=== PATIENT | female | born 1950 | race Caucasian/White ===

== ENCOUNTER → 2023-09-09 | Outpatient (CLI) | payer MEDICARE ==
[2023-09-09 14:37] VITALS: BP 147/71; PULSE 77; RESP 17; TEMP 98.6
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
== END ==
LOC: WWCWWP 13:40
PROVIDERS: ATTEND Surgery
DX: S09.90XA Unspecified injury of head, initial encounter (principal); C50.911 Malignant neoplasm of unspecified site of right female breast; Z80.3 Family history of malignant neoplasm of breast; Z86.73 Personal history of transient ischemic attack (TIA), and cerebral infarction without residual deficits; Z87.891 Personal history of nicotine dependence; Z17.0 Estrogen receptor positive status [ER+]; V29.99XA Rider (driver) (passenger) of other motorcycle injured in unspecified traffic accident, initial encounter

== ENCOUNTER → 2023-11-03 | Outpatient (CLI) | payer MEDICARE ==
[2023-11-03 15:02] VITALS: BP 127/81; PULSE 78; RESP 15; TEMP 97.9
== END ==
LOC: WWCWWP 12:37
PROVIDERS: ATTEND Surgery
DX: Z53.9 Procedure and treatment not carried out, unspecified reason (principal)

== ENCOUNTER 2023-11-15 07:21 | Day surgery (SDC) | payer MEDICARE ==
[2023-11-10 12:16] VITALS: BMI 26.5
[~2023-11-15 07:21] MED LIST: HYDROmorphone 0.5 MG/0.5 ML SYRINGE IVP PRN; MIDAZOLAM 2 MG/2 ML VIAL IV PRN
[2023-11-15] MEDS: LACTATED RINGERS 1,000 ML IV SCH (08:14)
[2023-11-15] MEDS: LIDOCAINE 1% (10MG/ML) FOR IV START INTRADERMA PRN (08:14)
[2023-11-15] MEDS: ACETAMINOPHEN TAB 500 MG TAB PO PRN (08:18)
[2023-11-15] MEDS: ALPRAZolam 0.25 MG TAB PO ONE (08:18)
[2023-11-15] MEDS ORDERED: ALPRAZolam 0.25 MG TAB ONE (08:18)
[2023-11-15] MEDS: LIDOCAINE 1% INJ 10MG/ML (20 ML MDV) SQ ONE ×3 (09:06→11:39)
[2023-11-15 09:27] VITALS: RESP 16
[2023-11-15] MEDS: DEXAMETHASONE SOD PHOSPHATE 4 MG/ML 1 ML VIAL IV ONE (09:44)
[2023-11-15] MEDS: ONDANSETRON 4 MG/2 ML VIAL IVP ONE (09:45)
[2023-11-15] MEDS: HEPARIN SODIUM,PORCINE 5,000 UNIT/ML 1 ML VIAL SQ PRN (09:45)
[2023-11-15] MEDS ORDERED: SUCCINYLCHOLINE CHLORIDE 200 MG/10 ML VIAL IV ONE (09:54)
[2023-11-15] MEDS ORDERED: fentaNYL (PF) 50 MCG/ML 2 ML AMP ONE (09:54)
[2023-11-15] MEDS ORDERED: ePHEDrine 50 MG/ML 1 ML VIAL ONE (09:54)
[2023-11-15] MEDS ORDERED: KETOROLAC 15 MG/ML 1 ML VIAL ONE (09:54)
[2023-11-15] MEDS ORDERED: LIDOCAINE 1% INJ 10MG/ML (20 ML MDV) ONE (09:54)
[2023-11-15] MEDS ORDERED: PROPOFOL 10 MG/ML 20 ML VIAL IV ONE (09:54)
[2023-11-15] MEDS: LACTATED RINGERS 1,000 ML IV ONE (11:30)
--- NOTE | 2023-11-15 11:37 | P.BCAON ---
Date of Procedure: 11/15/23 Preoperative Diagnosis: Right breast invasive ductal carcinoma Postoperative Diagnosis: Same Procedure(s) Performed: Right breast needle localization lumpectomy, oncoplastic tissue transfer 38 cm, sentinel node mapping, sentinel node biopsy Anesthesia: LUCIO Surgeon: Antonia Wagner Estimated Blood Loss (ml): 5 IV fluids (ml): 1,000 Pathology: other (Breast tissue, sentinel node) Condition: stable Disposition: same day Indications for Procedure: Right breast biopsy-proven invasive ductal carcinoma Operative Findings: Dense breast tissue Description of Procedure: The patient was first seen in the radiology department. Needle localization of the area of concern in the right breast was performed. Radiotracer was placed in the periareolar area. The patient was brought to the operative suite. Following induction of anesthesia the neoprobe was used to interrogate the axilla. Minimal radioactivity was identified. Therefore 5 cc of half percent methylene blue were injected in the periareolar area. The breast was massaged for 5 minutes. The right breast and axilla were prepped and draped in a sterile fashion. An axillary incision was performed. Upon performing the incision the neoprobe was again inserted into the area and some radioactivity was identified. 2 blue radioactive lymph nodes were identified. These were resected. No additional palpable radioactive or blue nodes were identified. After we are sure that hemostasis was attained the deep tissues were closed using 3-0 Vicryl suture. The skin was closed using 4-0 Monocryl. The area of the breast was approached. Secondary to the proximity to the skin,skin was removed anteriorly. A wedge of skin and tissue was removed surrounding the needle down to the pectoralis muscle. The tissue was removed around the lesion. The specimen was removed and painted for orientation. After we are sure that hemostasis was attained titanium clips were placed. A superior pillar 6 x 2 cm was created. An inferior pillar 5 x 2 cm was created. The cavity was 5 x 2 cm. Titanium clips were placed within the cavity. The cavity was well irrigated and we were sure that hemostasis was attained. The superior and inferior pillars were brought together using 3-0 Vicryl suture. Total oncoplastic tissue transfer was 38 cm. After assuring that hemostasis was attained the subcutaneous tissue was closed using 3-0 Vicryl suture. The skin was closed using 4-0 Monocryl. 1% lidocaine 10 cc was divided between the axillary and breast incision. Surgical glue was placed. The patient tolerated the procedure in stable condition. All instrument and sponge counts were correct at the end of the case. - Sentinal Node Biopsy Operation performed with curative intent: Yes Tracer(s) used in upfront surgery (non-neoadjuvant): dye, radioactive tracer Tracer(s) used in the neoadjuvant setting: N/A All nodes present at end of dye-filled channel removed: Yes All significantly radioactive nodes were removed: Yes All palpably suspicious nodes were removed: Yes Clipped positive nodes identified and removed: N/A
--- NOTE | 2023-11-15 11:39 | P.NAPBC ---
[facility] Queries - [facility] Queries Was patient's case review presented at [facility] tumor board? If no, comment.: Yes Was patient's pathology reviewed at [facility]? If no, comment.: Yes Was breast conservation surgery offered? If no, comment.: Yes Was sentinel node biopsy offered? If no, comment.: Yes Was diagnosis confirmed by percutaneous core biopsy? If no, comment.: Yes Is patient mastectomy patient?: No Was a preop referral to reconstructive surgeon offered?: No [facility] Comments: Stage I invasive ductal carcinoma right breast Clinical Stage: Stage I invasive ductal carcinoma right breast Prep Education Provided - Functional Assessment Performed?: Yes Referal Provided?: No
[2023-11-15 12:29] VITALS: TEMP 98.2
[2023-11-15 13:55] VITALS: BP 132/86; PULSE 66
--- NOTE | 2023-11-15 14:17 | NM ---
EXAMINATION TYPE: NM sentinel node injection DATE OF EXAM: 11/15/2023 COMPARISON: NONE CLINICAL INDICATION: Female, 73 years old with history of D05.11 INTRADUCTAL CARCINOMA IN SITU OF RIG HT BREAST; TECHNIQUE AND FINDINGS: The procedure of sentinel lymph node injection was explained to the patient. The benefits, alternatives, and risks were discussed. An informed consent was then obtained. Overlying skin is cleaned with sterile alcohol. Following this, 505 uCi Tc99m Tilmanocept was inject ed in the upper outer aspect of the right nipple intradermally. The patient tolerated the procedure well without any immediate complication. The patient was kept in the radiology department for short stay after the procedure and then taken to surgery for surgical p rocedure what is presumed intraoperative gamma probe will be used for sentinel lymph node detection. IMPRESSION: Right breast radiotracer injection for sentinel node localization as above.
--- NOTE | 2023-11-15 14:20 | MM ---
Risk Values: Kylah 5 year model risk: 3.0%. NCI Lifetime model risk: 7.3%. Electronically signed and approved by: Malia Childers M.D. Radiologist
== END 2023-11-15 13:58 | disposition home or self-care (01) ==
LOC: EEVIPCON 07:21 → OR 07:21
PROVIDERS: ATTEND Surgery
DX: D05.11 Intraductal carcinoma in situ of right breast (principal)
CPT/HCPCS: 77065; 76098; 19285; 38792; C1819; A9520; J0330; J1644; J1100; J0690; J2405; J2001; J3010; J1885; J2704; 88307; 88341; 88342

== ENCOUNTER → 2023-11-24 | Outpatient (CLI) | payer MEDICARE ==
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
[2023-11-24 14:44] VITALS: BP 116/76; PULSE 67; RESP 17; TEMP 97.7
== END ==
LOC: WWCWWP 14:14
PROVIDERS: ATTEND Surgery
DX: D05.11 Intraductal carcinoma in situ of right breast (principal); R42 Dizziness and giddiness; L53.8 Other specified erythematous conditions; Z48.817 Encounter for surgical aftercare following surgery on the skin and subcutaneous tissue; Z98.890 Other specified postprocedural states; Z87.828 Personal history of other (healed) physical injury and trauma

== ENCOUNTER → 2023-12-01 | Outpatient (CLI) | payer MEDICARE ==
[2023-12-01 13:50] VITALS: BP 111/65; PULSE 72; RESP 16; TEMP 98
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
== END ==
LOC: WWCWWP 12:41
PROVIDERS: ATTEND Surgery
DX: R42 Dizziness and giddiness (principal); L53.8 Other specified erythematous conditions; Z85.3 Personal history of malignant neoplasm of breast; Z48.817 Encounter for surgical aftercare following surgery on the skin and subcutaneous tissue

== ENCOUNTER → 2023-12-02 | Outpatient (CLI) | payer MEDICARE ==
--- NOTE | 2023-12-02 18:30 | CA ---
Transthoracic Echo Report Name: Karen King Age: 73 Gender: F : 1950 Exam Date: 12/02/2023 14:44 Exam Location: [facility] Ht (in): 63 Wt (lb): 148 Ordering Physician: [place] Arceo MD Attending/Referring Phys: [place] Arceo MD [place] Aishwarya Galvez RDCS Procedure CPT: Indications: Z01.818 PRE OP/CHEMO Cardiac Hx: Technical Quality: Fair Contrast 1: Total Dose (mL): Contrast 2: Total Dose (mL): MEASUREMENTS (Male / Female) Normal Values 2D ECHO LV Diastolic Diameter PLAX 4.5 cm 4.2 - 5.9 / 3.9 - 5.3 cm LV Systolic Diameter PLAX 3.2 cm IVS Diastolic Thickness 0.9 cm 0.6 - 1.0 / 0.6 - 0.9 cm LVPW Diastolic Thickness 1.0 cm 0.6 - 1.0 / 0.6 - 0.9 cm LV Relative Wall Thickness 0.4 LV Diastolic Volume MOD BP 42.2 cm??? 67 - 155 / 56 - 104 cm??? LV Systolic Volume MOD BP 15.4 cm??? 22 - 58 / 19 - 49 cm??? LV Ejection Fraction MOD BP 63.4 % >= 55 % LV Cardiac Index MOD BP 1089.3 cm???/min???m??? LV Diastolic Volume MOD 4C 32.6 cm??? LV Systolic Volume MOD 4C 11.3 cm??? LV Ejection Fraction MOD 4C 65.4 % LV Cardiac Index MOD 4C 868.8 cm???/min???m??? LV Diastolic Length 4C 5.3 cm LV Systolic Length 4C 4.9 cm LV Diastolic Volume MOD 2C 44.4 cm??? LV Systolic Volume MOD 2C 18.3 cm??? LV Ejection Fraction MOD 2C 58.8 % LV Cardiac Index MOD 2C 1064.6 cm???/min???m??? LV Diastolic Length 2C 6.6 cm LV Systolic Length 2C 5.7 cm M-MODE Aortic Root Diameter MM 3.2 cm LA Systolic Diameter MM 3.8 cm LA Ao Ratio MM 1.2 AV Cusp Separation MM 1.7 cm DOPPLER AV Peak Velocity 123.1 cm/s AV Peak Gradient 6.1 mmHg Mitral E Point Velocity 68.6 cm/s Mitral A Point Velocity 111.7 cm/s Mitral E to A Ratio 0.6 MV Deceleration Time 238.4 ms MV E' Velocity 6.0 cm/s Mitral E to MV E' Ratio 11.4 TR Peak Velocity 204.4 cm/s TR Peak Gradient 16.7 mmHg Right Ventricular Systolic Press 21.9 mmHg FINDINGS Left Ventricle Left ventricular ejection fraction is estimated at 55-60%. Normal Left ventricular size, wall thickness, systolic function with no obvious regional wall motion abnormalities. Normal Left ventricular diastolic filling pattern. Normal average global longitudinal strain of the left ventricle with a value of -20.4 %. Right Ventricle Normal right ventricular size. Right ventricular systolic pressure within normal limits. Right Atrium Normal right atrial size. Left Atrium Normal left atrial size. Mitral Valve Structurally normal mitral valve. Mild mitral annular calcification. Aortic Valve Trileaflet aortic valve. No aortic valve stenosis or regurgitation. Tricuspid Valve Structurally normal tricuspid valve. Mild tricuspid regurgitation. Pulmonic Valve Structurally normal pulmonic valve. No pulmonic stenosis. No pulmonic regurgitation. Pericardium No pericardial or pleural effusion. Aorta Normal size aortic root and proximal ascending aorta. CONCLUSIONS Normal LV systolic function. Normal LV wall thickness. No wall motion abnormalities. Normal LV diastolic function and feeling better. Normal LV strain Previewed by: Dr. Mikhail Wright MD (Electronically Signed) Final Date: 02 Dec 2023 18:29
== END | disposition home or self-care (01) ==
LOC: RADECHMAIN 14:11
PROVIDERS: ATTEND Internal Medicine
DX: Z01.818 Encounter for other preprocedural examination (principal); C50.511 Malignant neoplasm of lower-outer quadrant of right female breast; Z87.820 Personal history of traumatic brain injury
CPT/HCPCS: 93306